=== PATIENT | male | born 1980 | race Caucasian/White ===

== ENCOUNTER 2021-05-07 14:25 | Emergency (ER) | payer OTHER ==
[2021-05-07 14:38] VITALS: BP 169/88; PULSE 64; TEMP 98.2; BMI 28.8
[2021-05-07] MEDS ORDERED: SODIUM CHLORIDE 1,000 ML IV STA (15:35)
[2021-05-07] MEDS ORDERED: METOCLOPRAMIDE HCL INJECTION 10 MG/2 ML VIAL IVPB ONE (15:35)
[2021-05-07] MEDS ORDERED: METOCLOPRAMIDE HCL INJECTION 10 MG/2 ML VIAL ONE (15:40)
[2021-05-07 16:47] LABS: BASO % 0.5 % (0-2.0); EOS % 0.3 % (0-4.5); HEMATOCRIT 36.9 % (35.4-49); HEMOGLOBIN 12.7 GM/dL (11.7-16.9); LYMPH % 12.1 % (8-40); MCH 31.3 pg (25.7-33.7); MCHC 34.5 g/dl (32.0-35.9); MEAN CELL VOLUME 90.9 fl (80-96); MEAN PLT VOLUME 8.5 fl (7.5-11.1); MONO % 5.2 % (3.8-10.2); NEUT % 81.9 % (42.8-82.8); PLATELET COUNT 356 K/MM3 (134-434); RBC 4.06 M/mm3 (4.00-5.60); WHITE BLOOD COUNT 11.4 K/mm3 (4.0-10.0)
[2021-05-07 17:02] LABS: CALCIUM 9.5 mg/dL (8.5-10.1)
[2021-05-07 17:03] LABS: BLOOD UREA NITROGEN 7.5 mg/dL (7-18)
[2021-05-07 17:06] LABS: CREATININE 0.8 mg/dL (0.55-1.3)
[2021-05-07 17:07] LABS: BILIRUBIN,TOTAL 0.3 mg/dL (0.2-1); TOT PROT 8.2 g/dl (6.4-8.2)
[2021-05-07 17:10] LABS: N-TERMINAL BNP 414.8 pg/ml (5-125)
== END 2021-05-07 17:32 | disposition home or self-care (01) ==
LOC: JER 14:25
PROC: 3E033NZ Introduction of Analgesics, Hypnotics, Sedatives into Peripheral Vein, Percutaneous Approach (ICD-10-PCS; principal; 2021-05-07)
PROC: 3E0337Z Introduction of Electrolytic and Water Balance Substance into Peripheral Vein, Percutaneous Approach (ICD-10-PCS; 2021-05-07)
DX: L03.114 Cellulitis of left upper limb (principal); E86.0 Dehydration; F41.9 Anxiety disorder, unspecified
CPT/HCPCS: 36415; 71046-TC-FY; 80053; 82550; 83880; 84484; 85025; 99285-25

== ENCOUNTER 2022-03-10 18:31 | Emergency (ER) | payer OTHER ==
[2022-03-10 18:53] VITALS: BMI 25.7
[2022-03-10] MEDS ORDERED: SODIUM CHLORIDE 0.9% 1000 ML INFUS.BAG IV ONE (21:09)
[2022-03-10] MEDS ORDERED: LIDOCAINE 5% TOPICAL PATCH TP ONE (21:17)
[2022-03-10] MEDS ORDERED: ACETAMINOPHEN 1000 MG/100 ML BAG IVPB ONE (21:17)
[2022-03-10] MEDS ORDERED: LIDOCAINE PATCH REMOVAL MC SCH (22:00)
[2022-03-10] MEDS ORDERED: LIDOCAINE 5% TOPICAL PATCH ONE (22:17)
[2022-03-10] MEDS ORDERED: ACETAMINOPHEN INJECTION 100 ML IVPB ONE (22:17)
[2022-03-10 23:37] LABS: PH,URINE 6.5 (5.0-8.0); URINE APPEARANCE CLEAR; URINE BILIRUBIN NEGATIVE (NEGATIVE); URINE COLOR YELLOW; URINE GLUCOSE (UA) NEGATIVE (NEGATIVE); URINE KETONE NEGATIVE (NEGATIVE); URINE LEUK ESTERASE NEGATIVE (NEGATIVE); URINE NITRITE NEGATIVE (NEGATIVE); URINE PROTEIN TRACE (NEGATIVE); URINE UROBILINOGEN 0.2 mg/dL (0.2-1.0)
[2022-03-10 23:55] LABS: BASO % 0.9 % (0-2.0); EOS % 1.3 % (0-4.5); HEMATOCRIT 36.2 % (35.4-49); HEMOGLOBIN 12.6 GM/dL (11.7-16.9); LYMPH % 20.5 % (8-40); MCH 31.9 pg (25.7-33.7); MCHC 34.9 g/dl (32.0-35.9); MEAN CELL VOLUME 91.4 fl (80-96); MEAN PLT VOLUME 8.5 fl (7.5-11.1); MONO % 5.9 % (3.8-10.2); NEUT % 71.4 % (42.8-82.8); PLATELET COUNT 438 10^3/uL (134-434); RBC 3.96 M/mm3 (4.00-5.60); RDW 13.8 % (11.9-15.9); WHITE BLOOD COUNT 8.8 K/mm3 (4.0-10.0)
[2022-03-11 00:03] LABS: INR 1.12 (0.83-1.09); PROTHROMBIN TIME (PATIENT) 12.9 SEC (9.7-13.0)
[2022-03-11 00:05] LABS: ACTIVATED PTT 25.9 SECONDS (25.2-36.5)
[2022-03-11 00:17] LABS: CALCIUM 8.6 mg/dL (8.5-10.1)
[2022-03-11 00:18] LABS: ALBUMIN 3.5 g/dl (3.4-5.0); BLOOD UREA NITROGEN 7.6 mg/dL (7-18); MAGNESIUM 2.1 mg/dL (1.8-2.4)
[2022-03-11 00:22] LABS: BILIRUBIN,TOTAL 0.4 mg/dL (0.2-1); TOT PROT 6.8 g/dl (6.4-8.2)
[2022-03-11 00:26] LABS: N-TERMINAL BNP 16.7 pg/ml (5-125)
[2022-03-11] MEDS ORDERED: IBUPROFEN 400 MG TABLET (FP) PO ONE ×2 (01:33→01:50)
[2022-03-11 03:51] VITALS: BP 139/87; PULSE 82; TEMP 98.4
== END 2022-03-11 04:14 | disposition home or self-care (01) ==
LOC: JER 18:31
PROC: 3E0333Z Introduction of Anti-inflammatory into Peripheral Vein, Percutaneous Approach (ICD-10-PCS; principal; 2022-03-10)
DX: R06.09 Other forms of dyspnea (principal); M54.50 Low back pain, unspecified
CPT/HCPCS: 36415; 71045-TC-FY; 71275-TC; 80053; 81003; 83735; 83880; 84484; 85025; 85379; 85610; 85730; 87086; 93005; 93010; 99285-25